=== PATIENT | female | born 1970 | race American Indian/Alaskan Native ===

== ENCOUNTER 2018-05-08 11:43 | Emergency (ER) | payer MEDICARE ==
[2018-05-08] MEDS ORDERED: Sodium Chloride 0.9% 1,000 ML IV ONE (13:01)
--- NOTE | 2018-05-08 13:18 | RAD ---
Date of service: 05/08/2018 PROCEDURE: CHEST RADIOGRAPH, 1 VIEW HISTORY: SOB COMPARISON: None available. FINDINGS: LUNGS: Clear. PLEURA: No pneumothorax or pleural fluid seen. CARDIOVASCULAR: No aortic atherosclerotic calcification present. Normal. OSSEOUS STRUCTURES: No significant abnormalities. VISUALIZED UPPER ABDOMEN: Normal. OTHER FINDINGS: None. IMPRESSION: No active disease.
[2018-05-08 13:34] LABS: HEMOGLOBIN 11.5 g/dL (11.0-16.0); MEAN CELL VOLUME 73.5 fL (81.0-99.0); MEAN CORPUSCULAR HEMOGLOBIN 23.6 pg (27.0-31.0); MEAN CORPUSCULAR HGB CONC 32.1 g/dL (33.0-37.0); MEAN PLATELET VOLUME 7.9 fL (7.2-11.7); RBC 4.88 Mil/uL (3.80-5.20); RED CELL DISTRIBUTION WIDTH 15.5 % (11.5-14.5)
[2018-05-08 13:38] LABS: HCG,QUALITATIVE URINE NEGATIVE (NEGATIVE); SQUAMOUS EPITHIAL 1 /hpf (0-5); URINE BACTERIA RARE (<OCC); URINE BILIRUBIN NEGATIVE (NEGATIVE); URINE BLOOD NEGATIVE (NEGATIVE); URINE CLARITY Clear (Clear); URINE COLOR Straw (YELLOW); URINE GLUCOSE (UA) NORMAL (Normal); URINE LEUKOCYTE ESTERASE NEG Leu/uL (Negative); URINE PROTEIN NEGATIVE (NEGATIVE); URINE UROBILINOGEN NORMAL mg/dL (0.2-1.0)
[2018-05-08 14:00] LABS: ALB/GLOB RATIO 1.2 (1.0-2.1); ALBUMIN 4.3 g/dL (3.5-5.0); ALT/SGPT 19 U/L (9-52); AST/SGOT 25 U/L (14-36); BLOOD UREA NITROGEN 11 mg/dL (7-17); CALCIUM 9.5 mg/dl (8.6-10.4); GFR NON-AFRICAN AMERICAN > 60
--- NOTE | 2018-05-08 14:00 | C.PDOC ---
History Of Present Illness 47 y/o female presents to the ER for evaluations of near-syncopal episode which occurred earlier today. Patient states that she left the bathroom and was walking down the hallway when she felt that she might faint. She fell on the f yajaira without LOC, she was able to get back up and return to baseline immediately. Denies having head trauma, headache, dizziness, CP, SOB, nausea, vomiting, and incontinence. Time Seen by Provider: 05/08/18 12:37 Chief Complaint (Nursing): Dizziness/Lightheaded History Per: Patient History/Exam Limitations: no limitations Onset/Duration Of Symptoms: Hrs Current Symptoms Are (Timing): Gone Past Medical History Reviewed: Historical Data, Nursing Documentation, Vital Signs Vital Signs: Last Vital Signs Temp 98.6 F 05/08/18 12:01 Pulse 60 05/08/18 12:01 Resp 20 05/08/18 12:01 BP 98/54 L 05/08/18 12:01 Pulse Ox 100 05/08/18 12:01 - Medical History PMH: Anemia (Thalassemia), Depression Surgical History: No Surg Hx Family History: States: Hypertension - Social History Hx Alcohol Use: No Hx Substance Use: No - Immunization History Hx Tetanus Toxoid Vaccination: No Hx Influenza Vaccination: No Hx Pneumococcal Vaccination: No Review Of Systems Except As Marked, All Systems Reviewed And Found Negative. Constitutional: Negative for: Fever, Chills Cardiovascular: Negative for: Chest Pain Respiratory: Negative for: Shortness of Breath Gastrointestinal: Negative for: Nausea, Vomiting Neurological: Positive for: Other (near-syncope). Negative for: Headache, Dizziness Physical Exam - Physical Exam Appears: Non-toxic, No Acute Distress Skin: Normal Color, Warm, Dry Head: Atraumatic, Normacephalic Eye(s): bilateral: Normal Inspection, PERRL, EOMI Nose: Normal Oral Mucosa: Moist Neck: Supple Chest: Symmetrical Cardiovascular: Rhythm Regular Respiratory: Normal Breath Sounds, No Rales, No Rhonchi, No Wheezing Gastrointestinal/Abdominal: Normal Exam, Soft, No Tenderness, No Guarding, No Rebound Extremity: Normal ROM Neurological/Psych: Oriented x3, Normal Speech, Normal Motor, Normal Sensation Gait: Steady ED Course And Treatment - Laboratory Results Result Diagrams: 05/08/18 13:30 05/08/18 13:30 Lab Interpretation: Normal (ua neg.) Urine POC: Negative ECG: Interpreted By Me ECG Rhythm: Sinus Rhythm ECG Interpretation: Normal Rate From EC O2 Sat by Pulse Oximetry: 100 (RA) Pulse Ox Interpretation: Normal - Radiology CXR: Interpreted by Me, Viewed By Me CXR Interpretation: Yes: No Acute Disease Progress Note: Labs, ECG, CXR, and UA ordered. Patient treated with IV Fluids. Reevaluation Time: 13:59 Reassessment Condition: Improved Medical Decision Making Medical Decision Making: vasovagal syncope no neuro deficit Hemoglobin 11.5 is normal ? underlying thallasamia or underlying macro/microcytic anemias as RDW widened outpatient f/u with our outpatient Clinic Call for appt. Disposition Doctor Will See Patient In The: Office Counseled Patient/Family Regarding: Studies Performed, Diagnosis - Disposition Referrals: [facility] [Outside] [facility] [Outside] [facility] [Outside] [facility] [Outside] Disposition: HOME/ ROUTINE Disposition Time: 14:00 Condition: GOOD Additional Instructions: normal labs, urine normal, test NEGATIVE normal CXR, EKG ? underlying thallasemia but no significant anemia outpatient Clinic follow-up Call for an appt Eat meals regularly. Instructions: Syncope (Fainting), Vasovagal Response (DC) Forms: [facility] (Arabic) - Clinical Impression Clinical Impression: Vasovagal attack - Scribe Statement The provider has reviewed the documentation as recorded by the Scribe Jeannie Cortez Provider Attestation: All medical record entries made by the Scribe were at my direction and personally dictated by me. I have reviewed the chart and agree that the record accurately reflects my personal performance of the history, physical exam, medical decision making, and the department course for this patient. I have also personally directed, reviewed, and agree with the discharge instructions and disposition.
[2018-05-08 14:06] VITALS: BP 114/71; PULSE 58; RESP 18; TEMP 98.7
[2018-05-08 14:07] LABS: MONO # 0.4 K/uL (0.0-0.8); NEUT # 3.7 K/uL (1.8-7.0)
[2018-05-08 14:10] LABS: BENZODIAZEPINES, UR NEGATIVE (NEGATIVE); OPIATES, UR NEGATIVE (NEGATIVE); PHENCYCLIDINE, UR NEGATIVE (NEGATIVE)
[2018-05-08 14:11] LABS: B-TYPE NATRIURETIC PEPTIDE 63.2 pg/mL (0-450); BARBITURATES, UR NEGATIVE (NEGATIVE)
[2018-05-08 15:53] VITALS: O2SAT 100
--- NOTE | 2018-05-10 07:36 | CARD ---
APPROVED REPORT Date of service: 05/08/2018 EKG Measurement Heart [id number] <Conclusion> Sinus bradycardia Otherwise normal ECG
== END 2018-05-08 14:45 | disposition home or self-care (01) ==
LOC: C.ER 11:43
DX: R55 Syncope and collapse (principal)
CPT/HCPCS: 71045; 80053; 81001; 82948; 83880; 84484; 84703; 85025; 85378; 93005; 96360; 99285; G0480; J7030